=== PATIENT | male | born 2000 | race African-American/Black ===

== ENCOUNTER 2019-08-16 19:03 | Emergency (ER) | payer MEDICAID, OTHER ==
[~2019-08-16] VITALS: Ht 172.7 cm; Wt 103.0 kg
[~2019-08-16 19:03] MED LIST: ADV25050 INHALATION; ALBU2.5V3 NEB; ALBU8.5H8 INH; ALBUTEROL; BECL10.6 IH; GUAI120S25 PO; MED4DP PO; MONT10TA21 PO; MONT5TAB13; PULM90; PULMICORT; RTPRO5; SINGULAIR
[2019-08-16 19:17] VITALS: Ht 172.7 cm; Wt 103.0 kg
[2019-08-16] MEDS ORDERED: IPRATROPIUM (NEB) 0.5 MG/2.5 ML AMP NEB STA (20:04)
[2019-08-16] MEDS ORDERED: ALBUTEROL 0.083% (NEB) 2.5 MG/3 ML AMP NEB STA (20:04)
[2019-08-16] MEDS ORDERED: METHYLPREDNISOLONE 125 MG INJ IM STA (20:04)
[2019-08-16 21:18] VITALS: BP 144/77; PULSE 95; RESP 18
== END 2019-08-16 21:18 | disposition home or self-care (01) ==
LOC: FTE 19:03
DX: J45.20 Mild intermittent asthma, uncomplicated (principal); Z91.010 Allergy to peanuts
CPT/HCPCS: 94664; 96372; J2930; Z7502; Z7610